=== PATIENT | female | born 1965 | race Hispanic/Latino ===

== ENCOUNTER 2017-04-14 08:44 | Emergency (ER) | payer OTHER ==
[2017-04-14] MEDS ORDERED: Azithromycin 250 MG TAB ONE (09:18)
== END 2017-04-14 09:21 | disposition home or self-care (01) ==
LOC: NAV ERS 08:44
DX: J40 Bronchitis, not specified as acute or chronic (principal); J01.90 Acute sinusitis, unspecified; I11.0 Hypertensive heart disease with heart failure; I50.9 Heart failure, unspecified; Z79.899 Other long term (current) drug therapy; Z79.01 Long term (current) use of anticoagulants
CPT/HCPCS: 99283